=== PATIENT | female | born 1990 | race Caucasian/White ===

== ENCOUNTER 2020-04-27 18:52 | Emergency (ER) | payer OTHER ==
[2020-04-27 19:07] VITALS: BMI 25.7
[2020-04-27] MEDS ORDERED: SODIUM CHLORIDE 0.9% 500 ML INFUS.BAG IV ONE (20:07)
[2020-04-27] MEDS ORDERED: FAMOTIDINE 20 MG/50 ML IVPB 20 MG/50 ML MG IVPB ONE ×2 (20:07→20:21)
[2020-04-27] MEDS ORDERED: ONDANSETRON 4 MG/2 ML VIAL IVPUSH ONE (20:07)
[2020-04-27] MEDS ORDERED: ONDANSETRON 4 MG/2 ML VIAL ONE (20:21)
[2020-04-27 20:53] LABS: BASO % 0.3 % (0-2.0); EOS % 1.4 % (0-4.5); HEMATOCRIT 40.4 % (32.4-45.2); HEMOGLOBIN 13.1 GM/dL (10.7-15.3); LYMPH % 34.2 % (8-40); MCH 27.2 pg (25.7-33.7); MCHC 32.3 g/dl (32.0-36.0); MEAN CELL VOLUME 84.3 fl (80-96); NEUT % 57.1 % (42.8-82.8); PLATELET COUNT 243 K/MM3 (134-434); RDW 13.2 % (11.6-15.6); WHITE BLOOD COUNT 8.3 K/mm3 (4.0-10.0)
[2020-04-27 21:03] LABS: INR 1.08 (0.83-1.09)
[2020-04-27 21:06] LABS: ACTIVATED PTT 30.9 SECONDS (25.2-36.5)
[2020-04-27 21:07] LABS: CHLORIDE 108 mmol/L (98-107); POTASSIUM 3.8 mmol/L (3.5-5.1); SODIUM 143 mmol/L (136-145)
[2020-04-27 21:09] LABS: ALBUMIN 3.8 g/dl (3.4-5.0)
[2020-04-27 21:10] LABS: ANION GAP 8 MMOL/L (8-16); BLOOD UREA NITROGEN 7.2 mg/dL (7-18); CALCIUM 9.3 mg/dL (8.5-10.1); CO2 27 mmol/L (21-32); GLUCOSE,RANDOM 89 mg/dL (74-106); LIPASE 240 U/L (73-393)
[2020-04-27 21:13] LABS: SGOT/AST 8 U/L (15-37); SGPT/ALT 12 U/L (13-61)
[2020-04-27 21:15] LABS: TOT PROT 7.1 g/dl (6.4-8.2)
[2020-04-27 21:16] LABS: ALK PHOS 65 U/L (45-117)
[2020-04-27 21:23] LABS: BILIRUBIN,TOTAL 0.2 mg/dL (0.2-1)
[2020-04-27 21:54] VITALS: BP 106/70
[2020-04-27 23:44] VITALS: PULSE 62
== END 2020-04-27 23:00 | disposition home or self-care (01) ==
LOC: JER 18:52
PROC: 3E033NZ Introduction of Analgesics, Hypnotics, Sedatives into Peripheral Vein, Percutaneous Approach (ICD-10-PCS; principal; 2020-04-27)
PROC: 3E033GC Introduction of Other Therapeutic Substance into Peripheral Vein, Percutaneous Approach (ICD-10-PCS; 2020-04-27)
DX: R11.15 Cyclical vomiting syndrome unrelated to migraine (principal); R00.1 Bradycardia, unspecified
CPT/HCPCS: 36415; 71045-TC-FY; 80053; 83690; 84484; 84703; 85025; 85610; 85730; 93005; 93010; 99285-25

== ENCOUNTER 2020-04-28 20:30 | Emergency (ER) | payer OTHER ==
[2020-04-28 20:54] VITALS: BMI 24.0
[2020-04-28] MEDS ORDERED: ACETAMINOPHEN 325 MG TABLET (FP) PO ONE (21:45)
[2020-04-28] MEDS ORDERED: CYCLOBENZAPRINE HCL 10 MG TABLET (FP) PO ONE (21:45)
[2020-04-28] MEDS ORDERED: ONDANSETRON *ODT* 4 MG TABLET SL ONE (21:45)
[2020-04-28] MEDS ORDERED: MAG HYDROX/AL HYDROX/SIMETH 30 ML UNIT-DOSE CUP PO ONE (21:45)
[2020-04-28] MEDS ORDERED: MAG HYDROX/AL HYDROX/SIMETH 30 ML UNIT-DOSE CUP ONE (21:49)
[2020-04-28] MEDS ORDERED: ONDANSETRON *ODT* 4 MG TABLET ONE (21:49)
[2020-04-28] MEDS ORDERED: CYCLOBENZAPRINE HCL 10 MG TABLET (FP) ONE (21:49)
[2020-04-28] MEDS ORDERED: ACETAMINOPHEN 325 MG TABLET (FP) ONE (21:52)
[2020-04-28] MEDS ORDERED: ONDANSETRON 4 MG TABLET PO ONE (21:53)
[2020-04-28 23:34] VITALS: BP 110/80; PULSE 86; TEMP 98.6
== END 2020-04-28 23:28 | disposition home or self-care (01) ==
LOC: JER 20:30
DX: M54.2 Cervicalgia (principal)
CPT/HCPCS: 99283-25; Q0162